=== PATIENT | female | born 1955 | race Caucasian/White ===

== ENCOUNTER → 2017-04-22 | Outpatient (CLI) | payer OTHER ==
[~2017-04-22] MED LIST: PREM0.622 PO
--- NOTE | 2017-04-26 10:49 | RSPPFT ---
DATE OF PROCEDURE: 04/22/17 COMMENTS: VOLUMES DYNAMIC: FVC normal; FEV1 moderately reduced. STATIC: FRC and RV moderately to severely increased; TLC normal. FLOWS: FEV1% moderately reduced; FEF 25-75 severely reduced. DIFFUSION: Normal. FLOW VOLUME LOOP: Pattern of variable intrathoracic airways obstruction. IMPRESSION: Moderately severe obstructive ventilatory defect with significant hyperinflation and an increase in airways resistance. Diffusion capacity is normal. There is no significant change post-bronchodilator.
== END ==
LOC: HRSP 10:38
PROVIDERS: ATTEND Internal Medicine
DX: J44.9 Chronic obstructive pulmonary disease, unspecified (principal)
CPT/HCPCS: 94060; 94618; 94726; 94729

== ENCOUNTER 2017-08-03 09:35 | Emergency (ER) | payer OTHER, MEDICAID ==
[2017-08-03] MEDS ORDERED: SODIUM CHLORIDE 0.9% FLUSH 10 ML FLUSH IV FLUSH (10:00)
[2017-08-03] MEDS: SODIUM CHLOR 0.9% 1000 ML INJ 1,000 ML IV (10:09)
[2017-08-03] MEDS: MORPHINE SULFATE 4 MG/ML INJ IV PUSH (10:09)
[2017-08-03] MEDS: ONDANSETRON HCL 4 MG/2 ML VIAL IVP (10:09)
[2017-08-03 10:10] LABS: BILIRUBIN, URINE NEG (NEG); BLOOD, URINE SMALL (NEG); GLUCOSE,URINE NEG (NEG); KETONE, URINE TRACE mg/dL (NEG); NITRITE,URINE NEG (NEG); URINE COLOR YELLOW (YELLW/STRAW); URINE LEUKOCYTE ESTERASE NEG (NEG)
[2017-08-03 10:13] LABS: AUTOMATED NEUTROPHIL # 5.2 TH/MM3 (1.8-7.7); BASOPHIL # 0.3 TH/MM3 (0-0.2); BASOPHIL % 3.5 % (0.0-2.0); EOSINOPHIL # 0.1 TH/MM3 (0-0.4); HEMATOCRIT 40.4 % (35.0-46.0); HEMO FLAGS DIFF FINAL; HEMOGLOBIN 13.9 GM/DL (11.6-15.3); LYMPH % 14.9 % (9.0-44.0); LYMPHOCYTE # 1.1 TH/MM3 (1.0-4.8); MEAN CELL VOLUME 95.7 FL (80.0-100.0); MEAN CORPUSCULAR HEMOGLOBIN 32.9 PG (27.0-34.0); MEAN CORPUSCULAR HGB CONC 34.4 % (32.0-36.0); MEAN PLATELET VOLUME 7.2 FL (7.0-11.0); MONO % 7.4 % (0.0-8.0); MONOCYTE # 0.5 TH/MM3 (0-0.9); NEUT % 73.2 % (16.0-70.0); PLATELET COUNT 422 TH/MM3 (150-450); RED BLOOD COUNT 4.22 MIL/MM3 (4.00-5.30); RED CELL DISTRIBUTION WIDTH 14.3 % (11.6-17.2); WHITE BLOOD COUNT 7.2 TH/MM3 (4.0-11.0)
[2017-08-03 10:22] LABS: CHLORIDE 107 MEQ/L (98-107); SODIUM (NA) 139 MEQ/L (136-145)
[2017-08-03 10:25] LABS: CALCIUM 9.5 MG/DL (8.5-10.1); POTASSIUM 4.6 MEQ/L (3.5-5.1)
[2017-08-03 10:26] LABS: ALBUMIN 3.8 GM/DL (3.4-5.0); ANION GAP 7 MEQ/L (5-15); APTT (PATIENT) 25.2 SEC (24.3-30.1); BICARBONATE 24.9 MEQ/L (21.0-32.0); BLOOD UREA NITROGEN 7 MG/DL (7-18); GLUCOSE,RANDOM 110 MG/DL (74-106); INTERNATIONAL NORMALIZED RATIO 0.9 RATIO; LIPASE 115 U/L (73-393); PROTHROMBIN TIME - PATIENT 9.6 SEC (9.8-11.6)
[2017-08-03 10:29] LABS: ALT (GPT) 20 U/L (10-53); AST (GOT) 37 U/L (15-37); CREATININE 0.56 MG/DL (0.50-1.00); GLOMERULAR FILTRATION RATE 109 ML/MIN (>89)
[2017-08-03 10:30] LABS: TOTAL BILIRUBIN ADULT 0.6 MG/DL (0.2-1.0)
[2017-08-03 10:31] LABS: TOTAL PROTEIN 7.6 GM/DL (6.4-8.2)
[2017-08-03 10:32] LABS: ALKALINE PHOSPHATASE 69 U/L (45-117)
[2017-08-03 10:48] LABS: METHOD OF COLLECTION CLEAN CATCH
[2017-08-03 10:49] LABS: COMMENT (UR) CULT NOT INDICATED; CULTURE IF INDICATED CULT NOT INDICATED; RBC, URINE 0-3 /hpf (0-3); SQUAMOUS EPITHELIAL CELL URINE 0-5 /hpf (0-5)
[2017-08-03] MEDS: DIATRIZOATE MEGLUM/DIATRIZOATE SOD 9 ML CUP (11:09)
[2017-08-03] MEDS: IOHEXOL 350 MG/ML 10 ML VIAL (for RAD DIAG) IVCONTRAST (12:05)
== END 2017-08-03 13:30 | disposition home or self-care (01) ==
LOC: PHED 09:35
DX: R10.10 Upper abdominal pain, unspecified (principal); R11.2 Nausea with vomiting, unspecified; K76.89 Other specified diseases of liver; K76.0 Fatty (change of) liver, not elsewhere classified; C34.90 Malignant neoplasm of unspecified part of unspecified bronchus or lung; Z72.0 Tobacco use; Z79.82 Long term (current) use of aspirin; Z79.51 Long term (current) use of inhaled steroids; Z79.899 Other long term (current) drug therapy
CPT/HCPCS: 74177; 76705; 80053; 81001; 83690; 85025; 85610; 85730; 93005; 96374; 96375; 99285-25